=== PATIENT | male | born 1960 | race Caucasian/White ===

== ENCOUNTER 2020-09-25 03:10 | Emergency (ER) | payer OTHER ==
[~2020-09-25] VITALS: Ht 172.7 cm; Wt 90.7 kg
[2020-09-25 03:18] VITALS: BP_SYST 116
[2020-09-25 03:45] VITALS: BP_SYST 116
== END 2020-09-25 03:45 ==
LOC: SED 03:10
DX: F10.129 Alcohol abuse with intoxication, unspecified (principal); M54.2 Cervicalgia; M54.9 Dorsalgia, unspecified; R73.03 Prediabetes; I10 Essential (primary) hypertension; Y90.9 Presence of alcohol in blood, level not specified
CPT/HCPCS: 82962; 99283